=== PATIENT | female | born 1945 | race Caucasian/White ===

== ENCOUNTER 2022-02-11 15:58 | Inpatient (IN) | payer MEDICARE ==
[2022-02-11] MEDS ORDERED: LORazepam 2 MG/ML INJ IV STA (18:30)
[2022-02-11] MEDS ORDERED: SODIUM CHLORIDE 0.9% 1,000 ML IV ONE (18:33)
[2022-02-11] MEDS ORDERED: THIAMINE 100 MG/ML 2 ML VIAL IVP STA (18:33)
[2022-02-11] MEDS ORDERED: FOLIC ACID 1 MG TAB PO STA (18:34)
--- NOTE | 2022-02-11 19:19 | ED ---
Alcohol HPI - General Chief Complaint: Alcohol Stated Complaint: alcohol withdrawl Time Seen by Provider: 02/11/22 18:20 Source: patient, family, RN notes reviewed Mode of arrival: wheelchair Limitations: no limitations - History of Present Illness Initial Comments: Patient is a 76-year-old female sent in by her primary care physician. Patient here with a relative. Apparently the patient drinks alcohol a daily basis. She states 2 drinks a day. However the patient's relative states more. Apparently the patient was sent in for possible thymine deficiency. Patient's primary care physician also wanted a computed tomography scan. Patient has denied any recent falls. She is denying any symptomology herself. However her family member states that she has been having some visual hallucinations and has been acting strange. Patient has no history of pneumonia difficulties. Patient denying any chest pain. No other illicit drug abuse. Last alcohol drink was yesterday. No headache, no fever or chills, no changes in vision or hearing, no sore throat or difficulty with speech, no neck pain, no chest pain or shortness of breath, no abdominal pain, no nausea or vomiting, no changes in urination or bowel movements, no numbness or tingling, no extremity pain, no skin rashes or lesions. Past medical, surgical, social, and family history reviewed. - Related Data Home Medications Medication Instructions Recorded Confirmed Famotidine 40 mg PO DAILY 02/11/22 02/11/22 Loratadine 10 mg PO DAILY 02/11/22 02/11/22 Allergies Allergy/AdvReac Type Severity Reaction Status Date / Time No Known Allergies Allergy Verified 02/11/22 20:49 Review of Systems ROS Statement: Those systems with pertinent positive or pertinent negative responses have been documented in the HPI. ROS Other: All systems not noted in ROS Statement are negative. Past Medical History Past Medical History: Fibromyalgia, Hypertension Additional Past Medical History / Comment(s): alcoholism Additional Past Surgical History / Comment(s): fibroids removed. Past Psychological History: No Psychological Hx Reported Smoking Status: Never smoker Past Alcohol Use History: Abuse, Daily Past Drug Use History: None Reported General Exam - General Exam Comments Initial Comments: Nontoxic appearing female in no acute distress. Patient vital signs are reviewed. Limitations: no limitations General appearance: alert, in no apparent distress Head exam: Present: atraumatic, normocephalic, normal inspection Eye exam: Present: normal appearance, PERRL, EOMI. Absent: scleral icterus, conjunctival injection, periorbital swelling ENT exam: Present: normal exam, mucous membranes moist Neck exam: Present: normal inspection. Absent: tenderness, meningismus, lymphadenopathy Respiratory exam: Present: normal lung sounds bilaterally. Absent: respiratory distress, wheezes, rales, rhonchi, stridor Cardiovascular Exam: Present: regular rate, normal rhythm, normal heart sounds. Absent: systolic murmur, diastolic murmur, rubs, gallop, clicks GI/Abdominal exam: Present: soft, normal bowel sounds. Absent: distended, tend erness, guarding, rebound, rigid Extremities exam: Present: normal inspection, full ROM, normal capillary refill. Absent: tenderness, pedal edema, joint swelling, calf tenderness Back exam: Present: normal inspection Neurological exam: Present: alert, oriented X3, CN II-XII intact Psychiatric exam: Present: normal affect, normal mood Skin exam: Present: warm, dry, intact, normal color. Absent: rash Course Vital Signs 02/11/22 02/11/22 02/11/22 16:09 18:38 19:26 Temperature 97.9 F 98.4 F Pulse Rate 114 H 101 H 99 Pulse Rate [ Pulse Oximetery ] Respiratory 18 16 Rate Blood Pressure 188/119 168/106 175/110 Blood Pressure [Right Arm] O2 Sat by Pulse 99 99 99 Oximetry 02/11/22 02/12/22 02/12/22 20:18 01:01 01:49 Temperature 98.8 F 97.7 F Pulse Rate 84 83 Pulse Rate [ 99 Pulse Oximetery ] Respiratory 16 15 Rate Blood Pressure 149/94 114/78 Blood Pressure 148/88 [Right Arm] O2 Sat by Pulse 96 98 Oximetry - Reevaluation(s) Reevaluation #1: 02/11/22 20:42 Medical record is reviewed Symptoms are unchanged Patient is informed of results and questions answered Patient in no distress Reevaluation #2: 02/11/22 20:55 Medical record is reviewed Patient had a productive cough when I was in the room reevaluating her. Discussed all the findings. We'll add on a chest x-ray and a COVID-19 test. Still awaiting urinalysis. Patient is informed of results and questions answered Patient in no distress Reevaluation #3: 02/11/22 23:10 Chest x-ray shows evidence of pneumonia on lateral view. Likely in the right base. Given the patient's purulent productive cough I'm going to treat for pneumonia with the pneumonia protocol. Rocephin and Zithromax ordered. Will continue Ativan for the patient. Patient's curb 65 score is 2. Given the patient's questionable living situation I'm going to admit the patient. Medical Decision Making - Medical Decision Making Patient presents after being sent in by her regular physician for possible thymine deficiency. Differential diagnosis would be consistent with metabolic encephalopathy, possible early pneumonia, possible thymine deficiency, no evidence of head injury. However we'll obtain a computed tomography scan as the patient drinks on a daily basis and is poor historian. The case was discussed in detail with ED attending physician. Presentation, findings, treatment plan discussed in detail. Technician Automatic Dr. Corley - Lab Data Result diagrams: 02/11/22 18:52 02/11/22 18:52 Lab Results 02/11/22 02/11/22 02/11/22 Range/Units 18:52 18:52 18:52 WBC 5.7 (3.8-10.6) k/uL RBC 4.04 (3.80-5.40) m/uL Hgb 14.2 (11.4-16.0) gm/dL Hct 44.4 (34.0-46.0) % MCV 110.0 H (80.0-100.0) fL MCH 35.1 H (25.0-35.0) pg MCHC 31.9 (31.0-37.0) g/dL RDW 14.4 (11.5-15.5) % Plt Count 191 (150-450) k/uL MPV 8.6 Neutrophils % 64 % Lymphocytes % 28 % Monocytes % 5 % Eosinophils % 2 % Basophils % 1 % Neutrophils # 3.6 (1.3-7.7) k/uL Lymphocytes # 1.6 (1.0-4.8) k/uL Monocytes # 0.3 (0-1.0) k/uL Eosinophils # 0.1 (0-0.7) k/uL Basophils # 0.1 (0-0.2) k/uL Macrocytosis Marked A PT 10.5 (9.0-12.0) sec INR 1.0 (<1.2) Sodium 133 L (137-145) mmol/L Potassium 3.6 (3.5-5.1) mmol/L Chloride 99 (98-107) mmol/L Carbon Dioxide 25 (22-30) mmol/L Anion Gap 9 mmol/L BUN 7 (7-17) mg/dL Creatinine 0.61 (0.52-1.04) mg/dL Est GFR (CKD-EPI)AfAm >90 (>60 ml/min/1.73 sqM) Est GFR (CKD-EPI)NonAf 87 (>60 ml/min/1.73 sqM) Glucose 135 H (74-99) mg/dL Calcium 9.6 (8.4-10.2) mg/dL Phosphorus 3.2 (2.5-4.5) mg/dL Magnesium 1.6 (1.6-2.3) mg/dL Total Bilirubin 1.2 (0.2-1.3) mg/dL AST 54 H (14-36) U/L ALT 27 (4-34) U/L Alkaline Phosphatase 90 (38-126) U/L Ammonia (<30) umol/L Troponin I (0.000-0.034) ng/mL Total Protein 6.7 (6.3-8.2) g/dL Albumin 4.0 (3.5-5.0) g/dL Lipase 52 (23-300) U/L TSH 3.700 (0.465-4.680) mIU/L Serum Alcohol <10 mg/dL Coronavirus (PCR) (Not Detectd) 02/11/22 02/11/22 02/11/22 Range/Units 18:52 18:52 22:05 WBC (3.8-10.6) k/uL RBC (3.80-5.40) m/uL Hgb (11.4-16.0) gm/dL Hct (34.0-46.0) % MCV (80.0-100.0) fL MCH (25.0-35.0) pg MCHC (31.0-37.0) g/dL RDW (11.5-15.5) % Plt Count (150-450) k/uL MPV Neutrophils % % Lymphocytes % % Monocytes % % Eosinophils % % Basophils % % Neutrophils # (1.3-7.7) k/uL Lymphocytes # (1.0-4.8) k/uL Monocytes # (0-1.0) k/uL Eosinophils # (0-0.7) k/uL Basophils # (0-0.2) k/uL Macrocytosis PT (9.0-12.0) sec INR (<1.2) Sodium (137-145) mmol/L Potassium (3.5-5.1) mmol/L Chloride (98-107) mmol/L Carbon Dioxide (22-30) mmol/L Anion Gap mmol/L BUN (7-17) mg/dL Creatinine (0.52-1.04) mg/dL Est GFR (CKD-EPI)AfAm (>60 ml/min/1.73 sqM) Est GFR (CKD-EPI)NonAf (>60 ml/min/1.73 sqM) Glucose (74-99) mg/dL Calcium (8.4-10.2) mg/dL Phosphorus (2.5-4.5) mg/dL Magnesium (1.6-2.3) mg/dL Total Bilirubin (0.2-1.3) mg/dL AST (14-36) U/L ALT (4-34) U/L Alkaline Phosphatase (38-126) U/L Ammonia <9 (<30) umol/L Troponin I <0.012 (0.000-0.034) ng/mL Total Protein (6.3-8.2) g/dL Albumin (3.5-5.0) g/dL Lipase (23-300) U/L TSH (0.465-4.680) mIU/L Serum Alcohol mg/dL Coronavirus (PCR) Not Detected (Not Detectd) - EKG Data EKG Comments: EKG done at 2006 read by the ED attending physician reveals sinus rhythm with rate of 91, normal intervals aside from cure scientologist of 180 ms. Consistent with a right bundle-branch block with RSR pattern in lead V2 and widened QRS. Pulmonary disease pattern. No definitive evidence of acute ST or T-wave changes. There is an inverted T-wave in lead V1. However there is no comparison study., left axis deviation, Disposition Clinical Impression: Community acquired pneumonia, Confusion, Alcohol abuse Disposition: ADMITTED IP TO THIS HOSP Condition: Fair Time of Disposition: 23:12 Decision to Admit Reason: Admit from EC Decision Time: 23:12
[2022-02-11 19:24] LABS: Basophils # (A) 0.1 k/uL (0-0.2); Basophils % (A) 1 %; Eosinophils # (A) 0.1 k/uL (0-0.7); Eosinophils % (A) 2 %; HCT 44.4 % (34.0-46.0); HGB 14.2 gm/dL (11.4-16.0); Lymphocytes # (A) 1.6 k/uL (1.0-4.8); Lymphocytes % (A) 28 %; MCH 35.1 pg (25.0-35.0); MCHC 31.9 g/dL (31.0-37.0); Macrocytosis Marked; Mean Platelet Volume 8.6; Monocytes # (A) 0.3 k/uL (0-1.0); Monocytes % (A) 5 %; Neutrophils # (A) 3.6 k/uL (1.3-7.7); Neutrophils % (A) 64 %; Platelet Count 191 k/uL (150-450); RBC 4.04 m/uL (3.80-5.40); RDW 14.4 % (11.5-15.5); WBC 5.7 k/uL (3.8-10.6)
[2022-02-11 19:34] LABS: Prothrombin Time 10.5 sec (9.0-12.0)
[2022-02-11 19:35] LABS: ALT 27 U/L (4-34); AST 54 U/L (14-36); African American GFR (CKD) >90 (>60 ml/min/1.73 sqM); Alcohol <10 mg/dL; Alkaline Phosphatase 90 U/L (38-126); Anion Gap 9 mmol/L; Blood Urea Nitrogen 7 mg/dL (7-17); Calcium 9.6 mg/dL (8.4-10.2); Carbon Dioxide 25 mmol/L (22-30); Chloride 99 mmol/L (98-107); Glucose 135 mg/dL (74-99); Lipase 52 U/L (23-300); Magnesium 1.6 mg/dL (1.6-2.3); Non-African American GFR(CKD) 87 (>60 ml/min/1.73 sqM); Phosphorus 3.2 mg/dL (2.5-4.5); Potassium 3.6 mmol/L (3.5-5.1); Sodium 133 mmol/L (137-145); Total Bilirubin 1.2 mg/dL (0.2-1.3); Total Protein 6.7 g/dL (6.3-8.2)
--- NOTE | 2022-02-11 20:23 | CT ---
EXAMINATION TYPE: CT brain wo con CT DLP: 1084.4 mGycm, Automated exposure control for dose reduction was used. DATE OF EXAM: 02/11/2022 7:59 PM COMPARISON: None. CLINICAL INDICATION:Female, 76 years old with history of Infusion, confusion/ alcohol withdrawal TECHNIQUE: Brain: Axial CT images of the brain were obtained with coronal and sagittal reformats created and rev iewed. Contrast used: None. Oral contrast used: None. FINDINGS: Brain: Extra-axial spaces: No abnormal extra-axial fluid collections. Ventricular system: Dilatation in proportion to cerebral atrophy. Cerebral parenchyma: Cerebral atrophy. No acute intraparenchymal hemorrhage or mass effect. The schmidt -white junction is well differentiated. Scattered hypoattenuating areas are seen within the white mat ter. Cerebellum: Unremarkable. Mass effect: No evidence of midline shift. Intracranial vasculature: Atherosclerotic calcifications of the intracranial vessels. Soft tissues: Normal. Calvarium/osseous structures: No depressed skull fracture. Paranasal sinuses and mastoid air cells: Mild scattered paranasal sinus disease. Visualized orbits: Orbital contents are intact. IMPRESSION: 1. No acute intracranial process. 2. Nonspecific white matter changes, likely secondary to chronic small vessel ischemic disease.
--- NOTE | 2022-02-11 22:03 | XR ---
EXAMINATION TYPE: XR chest 2V DATE OF EXAM: 02/11/2022 9:52 PM COMPARISON: None TECHNIQUE: XR chest 2V Frontal and lateral views of the chest. CLINICAL INDICATION:Female, 76 years old with history of Cough; FINDINGS: Lungs/Pleura: Opacities seen projecting over the spine on lateral view only There is no evidence of p leural effusion, focal consolidation, or pneumothorax. Pulmonary vascularity: Unremarkable. Heart/mediastinum: Cardiomediastinal silhouette is unremarkable. Musculoskeletal: No acute osseous pathology. IMPRESSION: Opacity within the lower lungs seen on lateral view only, could represent airspace disease.
[2022-02-11] MEDS ORDERED: PNEUMONIA PROTOCOL UTILIZED 1 EACH MISC PO PRN (23:09)
[2022-02-11] MEDS ORDERED: AZITHROMYCIN 500 MG in SODIUM CHLORIDE 0.9% 250 ML IVPB STA (23:09)
[2022-02-11] MEDS ORDERED: LORazepam 2 MG/ML INJ IV PRN ×3 (23:30)
[2022-02-11] MEDS ORDERED: THIAMINE 100 MG/ML 2 ML VIAL IM STA (23:30)
[2022-02-12] MEDS: THIAMINE 100 MG TAB PO SCH ×3 (02:04→16:53)
[2022-02-12 06:46] LABS: Appearance,Urine Cloudy (Clear); Bacteria,Urine Moderate /hpf; Bilirubin,Urine Negative (Negative); Blood,Urine Negative (Negative); Color,Urine Light Yellow; Glucose,Urine (UA) Negative (Negative); Ketones,Urine Trace (Negative); Leukocyte Esterase,Urine Large (Negative); Mucus,Urine Rare /hpf; Nitrite,Urine Negative (Negative); Protein,Urine Negative (Negative); RBC,Urine <1 /hpf (0-5); Renal Epithelial Cells,Urine <1 /hpf (0); Specific Gravity,Urine 1.007 (1.001-1.035); Squamous Epithelial Cell,Urine 16 /hpf (0-4); Transitional Epi Cells,Urine <1 /hpf (0-1); Urobilinogen,Urine <2.0 mg/dL (<2.0); WBC,Urine 51 /hpf (0-5)
--- NOTE | 2022-02-12 07:58 | XR ---
EXAMINATION TYPE: XR chest 2V DATE OF EXAM: 02/12/2022 6:23 AM COMPARISON: Chest radiographs from 02/11/2022. TECHNIQUE: XR chest 2V Frontal and lateral views of the chest. CLINICAL INDICATION:Female, 76 years old with history of pneumonia; FINDINGS: Lungs/Pleura: There is no evidence of pleural effusion or pleural effusion. Improved opacity projecte d over the spine on the lateral view only. Pulmonary vascularity: Unremarkable. Heart/mediastinum: Cardiomediastinal silhouette is unremarkable. Atherosclerotic calcifications are seen in the aorta. Musculoskeletal: No acute osseous pathology. IMPRESSION: Improved opacity projecting over the spine lateral view only. This may represent atelectasis versus i mproving pneumonia.
[2022-02-12] MEDS: HEPARIN SODIUM,PORCINE/PF 5,000 UNIT/0.5 ML SYRINGE SQ SCH ×2 (08:53→19:31)
[2022-02-12 13:50] VITALS: BMI 22.1
[2022-02-12] MEDS: AZITHROMYCIN 500 MG TAB PO SCH (15:01)
[2022-02-12] MEDS ORDERED: VANCOMYCIN IV PER PHARMACY 1 EACH MISC MISCELLANE PRN (17:53)
[2022-02-12] MEDS ORDERED: ACETAMINOPHEN TAB 325 MG TAB PO PRN (17:56)
[2022-02-12] MEDS: PANTOPRAZOLE 40 MG/10 ML VIAL IVP SCH (19:31)
[2022-02-12] MEDS: VANCOMYCIN 1,250 MG in SODIUM CHLORIDE 0.9% 250 ML IVPB SCH ×2 (19:31→20:19)
[2022-02-13 04:07] LABS: African American GFR (CKD) >90 (>60 ml/min/1.73 sqM); Non-African American GFR(CKD) >90 (>60 ml/min/1.73 sqM)
[2022-02-13] MEDS ORDERED: VANCOMYCIN 1,250 MG in SODIUM CHLORIDE 0.9% 250 ML IVPB SCH (08:00)
[2022-02-13] MEDS: THIAMINE 100 MG TAB PO SCH ×2 (08:29→18:43)
[2022-02-13] MEDS: PANTOPRAZOLE 40 MG/10 ML VIAL IVP SCH (08:53)
--- NOTE | 2022-02-13 08:56 | P.HPIM ---
History of Present Illness H&P Date: 02/12/22 Chief Complaint: weakness Alex Butler is a 76 yo F with PMH of fibromyalgia, alcoholism who was brought to the ED by her daughter due to weakness and confusion. She is a daily drinker and had apparently been acting more confused at home so her daughter brought her into her PCP and from there was recommended to go to the ED. She denies chest pain, shortness of breath, fever, nausea or vomiting. On presentation pt hypertensive, WBC 5.7, AST 54, Covid negative, alcohol negative. CT head no acute process. CXR with lower lobe infiltrate. Blood cultures positive x2 for gram positive cocci in clusters. Pt currently reports she is feeling fine. Review of Systems All systems: negative Constitutional: Denies chills, Denies fever Eyes: denies blurred vision, denies pain Ears, nose, mouth and throat: Denies headache, Denies sore throat Cardiovascular: Denies chest pain, Denies shortness of breath Respiratory: Denies cough Gastrointestinal: Denies abdominal pain, Denies diarrhea, Denies nausea, Denies vomiting Genitourinary: Denies dysuria, Denies hematuria Musculoskeletal: Denies myalgias Integumentary: Denies pruritus, Denies rash Neurological: Denies numbness, Denies weakness Psychiatric: Denies anxiety, Denies depression Endocrine: Denies fatigue, Denies weight change Past Medical History Past Medical History: Fibromyalgia, Hypertension Additional Past Medical History / Comment(s): alcoholism History of Any Multi-Drug Resistant Organisms: None Reported Additional Past Surgical History / Comment(s): fibroids removed. Past Anesthesia/Blood Transfusion Reactions: No Reported Reaction Past Psychological History: No Psychological Hx Reported Smoking Status: Never smoker Past Alcohol Use History: Abuse, Daily Past Drug Use History: None Reported Medications and Allergies Home Medications Medication Instructions Recorded Confirmed Type Famotidine 40 mg PO DAILY 02/11/22 02/11/22 History Loratadine 10 mg PO DAILY 02/11/22 02/11/22 History Allergies Allergy/AdvReac Type Severity Reaction Status Date / Time No Known Allergies Allergy Verified 02/11/22 20:49 Physical Exam Vitals: Vital Signs Temp Pulse Resp BP Pulse Ox 02/13/22 00:48 97.5 F L 94 15 118/81 97 02/13/22 00:00 97 02/12/22 19:31 94 15 02/12/22 19:08 98.7 F 100 17 153/93 99 02/12/22 13:50 98.2 F 111 H 18 151/81 99 Intake and Output 02/12/22 02/13/22 02/13/22 22:59 06:59 14:59 Other: Voiding Method Toilet # Voids 4 1 Gen: elderly female in NAD HEENT: NC/AT, mmm Neck: supple, no JVD or thyromegaly CV: RRR, no murmur Lungs: Normal effort, rales at bases Abd: soft, nontender non distended Neuro: alert and oriented x3, no focal deficit Skin: warm and dry Results CBC & Chem 7: 02/11/22 18:52 02/13/22 03:22 Labs: Abnormal Lab Results - Last 24 Hours (Table) 02/13/22 Range/Units 03:22 Creatinine 0.48 L (0.52-1.04) mg/dL Microbiology - Last 24 Hours (Table) 02/12/22 00:20 Blood Culture Gram Stain - Preliminary Blood Blood Culture - Preliminary Staphylococcus epidermidis 02/12/22 00:25 Blood Culture Gram Stain - Preliminary Blood 02/12/22 00:20 Blood Culture - Final Blood 02/12/22 00:25 Blood Culture - Final Blood 02/12/22 06:00 Urine Culture - Preliminary Urine,Voided Thrombosis Risk Factor Assmnt - Choose All That Apply Any of the Below Risk Factors Present?: No Other Risk Factors: Yes Each Risk Factor Represents 3 Points: Age 75 years or older Other congenital or acquired thrombophilia - If yes, enter type in comment: No Thrombosis Risk Factor Assessment Total Risk Factor Score: 3 Thrombosis Risk Factor Assessment Level: Moderate Risk Assessment and Plan Plan: 1. Severe sepsis, admit start IV vancomycin. ID consult. Continue rocephin. Question aspiration. Follow cultures 2. Acute encephalopathy. Secondary to above, no resolved 3. Alcoholism. CIWA protocol
[2022-02-13] MEDS: AZITHROMYCIN 500 MG TAB PO SCH (12:10)
[2022-02-13] MEDS: HEPARIN SODIUM,PORCINE/PF 5,000 UNIT/0.5 ML SYRINGE SQ SCH ×2 (12:10→20:06)
--- NOTE | 2022-02-13 14:06 | P.PN ---
Subjective Progress Note Date: 02/13/22 Alex Butler is a 76 yo F with PMH of fibromyalgia, alcoholism who was brought to the ED by her daughter due to weakness and confusion. She is a daily drinker and had apparently been acting more confused at home so her daughter brought her into her PCP and from there was recommended to go to the ED. She denies chest pain, shortness of breath, fever, nausea or vomiting. On presentation pt hypertensive, WBC 5.7, AST 54, Covid negative, alcohol negative. CT head no acute process. CXR with lower lobe infiltrate. Blood cultures positive x2 for gram positive cocci in clusters. Pt currently reports she is feeling fine. 02/13/2022 maintained on Rocephin, vancomycin, CIWA protocol with significant clinical improvement in sensorium. No DTs. Staff reporting patient drinks 20 ounces of wine daily as per daughter. Daughter Nikkie updated via phone. Blood cultures finalizing.afebrile, normal WBC, negative calcitonin. Sputum culture ordered, patient reports thin mucus unable to bring up, suspect related to alcohol abuse. Blood cultures reporting gram-positive cocci in clusters, suspecting contamination. Maintaining O2 sats in the high 90s on room air, Afebrile. Urine culture in progress. Alert and oriented 3, conversing appropriately. Denies chest pain, palpitations or shortness of breath. Denies lightheadedness, dizziness or focal deficits. Objective - Vital Signs Vital signs: Vital Signs Temp 97.8 F 02/13/22 10:54 Pulse 94 02/13/22 10:54 Resp 22 02/13/22 10:54 BP 143/89 02/13/22 10:54 Pulse Ox 98 02/13/22 10:54 FiO2 Intake & Output 02/12/22 02/13/22 02/13/22 18:59 06:59 18:59 Weight 63.957 kg Other: Voiding Method Toilet Toilet # Voids 4 1 - Exam Gen: elderly female in NAD HEENT: NC/AT, mmm Neck: supple, no JVD CV: RRR, no murmur Lungs: Normal effort, diminished bases Abd: soft, nontender non distended,+BS Neuro: alert and oriented x3, no focal deficit Skin: warm and dry - Labs CBC & Chem 7: 02/11/22 18:52 02/13/22 03:22 Labs: Abnormal Lab Results - Last 24 Hours (Table) 02/13/22 Range/Units 03:22 Creatinine 0.48 L (0.52-1.04) mg/dL Microbiology - Last 24 Hours (Table) 02/12/22 00:25 Blood Culture Gram Stain - Preliminary Blood Blood Culture - Preliminary Coagulase Negative Staph 02/12/22 00:20 Blood Culture Gram Stain - Preliminary Blood Blood Culture - Preliminary Staphylococcus epidermidis 02/12/22 06:00 Urine Culture - Final Urine,Voided 02/12/22 00:20 Blood Culture - Final Blood 02/12/22 00:25 Blood Culture - Final Blood Assessment and Plan Assessment: Possible Acute community-acquired Pneumonia, possibly aspiration secondary to alcoholism, ruling out severe sepsis, final blood cultures pending, suspect contamination Acute encephalopathy secondary to the above, resolved Alcoholism Plan: Continue on current medication regime ,monitoring and symptomatic treatment. Maintain IV antibiotic therapy. Final blood cultures pending. Discharge planning in progress for tomorrow. Daughter updated on discharge plans. The impression and plan of care has been dictated as directed. : I performed a history and examination of this patient, discussed the same with the dictator. I agree with the dictator's note ,documented as a scribe. Any additional findings or plans will be noted.
--- NOTE | 2022-02-13 14:53 | CDI ---
Documentation Clarification Form Date: 02/13/2022 02:38:14 PM From: Luann Hankins RN CCDS Admit Date: 02/11/2022 11:20:00 PM Patient Name: Alex Butler Visit Number: [id number] Discharge Date: ATTENTION: The Clinical Documentation Specialists (CDI) and [facility] Coding Staff appreciate your assistance in clarifying documentation. Please respond to the clarification below the line at the bottom and electronically sign. The CDI & [facility] Coding staff will review the response and follow-up if needed. Please note: Queries are made part of the Legal Health Record. If you have any questions, please contact the author of this message via ITS. Dr. Vignesh Parks Encephalopathy is documented 02/12, H&P. Additional clarification regarding the type of encephalopathy is requested. History/Risk Factors:76 y/o female presents to the ED from PCP office for being more confused at home with weakness. Medical History: Alcoholism; Fibromyalgia and HTN. 02/12, H&P. Clinical Indicators: 02/13, Medicine progress note: Possible Acute community acquired Pneumonia, possibly aspiration secondary to alcoholism. Acute encephalopathy secondary to the above, resolved. CXR, 02/11: Opacity within the lower lungs seen on lateral view only, could represent airspace disease. Labs: MCV 110.0; MCH 35.1; Macrocytosis Marked A; NA 133; AST 54. CT Brain, 02/11: No acute intracranial process. Nonspecific white matter changes, likely secondary to chronic small vessel ischemic disease. Treatment: 02/11 0.9NS 1L bolus; 02/11 Azithromycin 500mg IVPB x 1; 02/11 Ceftriaxone 2gm IVPB x 1; Zithromax 500mg PO Daily x 2 doses; 02/12 Vancomycin 1,250mg IVPB Q12H; 02/13 Ceftriaxone 2gm IVPB Q24H x 4 bags. Please clarify the type of encephalopathy, if known: [ ] Metabolic Encephalopathy [ ] Other, please specify [ ] Unable to determine (Template Last Revised: September 2020) Metabolic Encephalopathy MTDD
[2022-02-14] MEDS ORDERED: VANCOMYCIN TROUGH DUE 1 EACH MISC MISCELLANE ONE (07:00)
[2022-02-14] MEDS ORDERED: PANTOPRAZOLE 40 MG TABLET PO SCH (07:30)
--- NOTE | 2022-02-14 08:07 | P.CONS ---
History of Present Illness - Reason for Consult Consult date: 02/13/22 Bacteremia Requesting physician: Vignesh Parks - Chief Complaint Weakness and confusion x few days - History of Present Illness Patient is a 76-year-old female presenting to the hospital 2 days ago for evaluation of weakness and confusion apparently the patient is a daily drinker of alcohol and the patient acting more confused at home for which the patient was brought into the ER patient on arrival to the ER was afebrile and no fever have been recorded subsequently did have a normal white count kidney function has been normal AST was mildly elevated patient did have a positive UA with large leukocyte Estrace 51 WBC cultures currently pending patient did have a positive blood culture with staph epi patient has been started on vancomycin and Rocephin infectious disease was consulted for further management of antibiotic therapy patient did have a chest x-ray opacity within the lower lungs could represent airspace disease repeat x-ray improved opacity projecting over the spinal lateral view only representing atelectasis versus improving pneumonia. On today's evaluation that is 02/13/2022, the patient denies having any fever or any chills, the patient know that she is in the hospital patient is currently on room air denies any chest pain or shortness of breath did have occasional cough no sputum production denies having any nausea or vomiting no abdominal pain no diarrhea Review of Systems Positive point has been mentioned in the HPI rest of the systems are negative Past Medical History Past Medical History: Fibromyalgia, Hypertension Additional Past Medical History / Comment(s): alcoholism History of Any Multi-Drug Resistant Organisms: None Reported Additional Past Surgical History / Comment(s): fibroids removed. Past Anesthesia/Blood Transfusion Reactions: No Reported Reaction Past Psychological History: No Psychological Hx Reported Smoking Status: Never smoker Past Alcohol Use History: Abuse, Daily Past Drug Use History: None Reported Medications and Allergies Home Medications Medication Instructions Recorded Confirmed Type Famotidine 40 mg PO DAILY 02/11/22 02/11/22 History Loratadine 10 mg PO DAILY 02/11/22 02/11/22 History Allergies Allergy/AdvReac Type Severity Reaction Status Date / Time No Known Allergies Allergy Verified 02/11/22 20:49 Physical Exam Vitals: Vital Signs Temp Pulse Resp BP Pulse Ox 02/13/22 10:54 97.8 F 94 22 143/89 98 02/13/22 00:48 97.5 F L 94 15 118/81 97 02/13/22 00:00 97 02/12/22 19:31 94 15 02/12/22 19:08 98.7 F 100 17 153/93 99 02/12/22 13:50 98.2 F 111 H 18 151/81 99 Intake and Output 02/12/22 02/13/22 02/13/22 22:59 06:59 14:59 Other: Voiding Method Toilet # Voids 4 1 GENERAL DESCRIPTION: Elderly female lying in bed, no distress. No tachypnea or accessory muscle of respiration use. HEENT: Shows Pallor , no scleral icterus. Oral mucous membrane is dry. No pharyngeal erythema or thrush NECK: Trachea central, no thyromegaly. LUNGS: Unlabored breathing. Decreased present at the base. No wheeze or crackle. HEART: S1, S2, regular rate and rhythm. No loud murmur ABDOMEN: Soft, no tenderness , guarding or rigidity, no organomegaly EXTREMITIES: No edema of feet. SKIN: No rash, no masses palpable. NEUROLOGICAL: The patient is awake, alert, oriented x3, mood and affect normal. Results CBC & Chem 7: 02/11/22 18:52 02/13/22 03:22 Labs: Abnormal Lab Results - Last 24 Hours (Table) 02/13/22 Range/Units 03:22 Creatinine 0.48 L (0.52-1.04) mg/dL Microbiology - Last 24 Hours (Table) 02/12/22 00:20 Blood Culture Gram Stain - Preliminary Blood Blood Culture - Preliminary Staphylococcus epidermidis 02/12/22 00:25 Blood Culture Gram Stain - Preliminary Blood 02/12/22 00:20 Blood Culture - Final Blood 02/12/22 00:25 Blood Culture - Final Blood 02/12/22 06:00 Urine Culture - Preliminary Urine,Voided Assessment and Plan (1) UTI (urinary tract infection) Current Visit: Yes Status: Acute Code(s): N39.0 - URINARY TRACT INFECTION, SITE NOT SPECIFIED SNOMED Code(s): 23906155 Plan: 1patient with a positive blood culture finalized with staph epi more likely skin contaminant as the patient has no clinical disease to go along with the blood cultures will be repeated and discontinue vancomycin. 2patient with a confusion mental status changes did have a positive UA possible concern for UTI patient did have a abnormal x-ray could be more likely atelectasis as the patient did not have significant respiratory symptoms and a chest x-ray of improved very quickly within 24-hour. 3discontinue vancomycin and continue with Rocephin while waiting for the culture to finalize. We will follow on clinical condition and cultures to further adjust medication if needed Thank you for this consultation will follow this patient along with you Time with Patient: Greater than 30
[2022-02-14] MEDS: HEPARIN SODIUM,PORCINE/PF 5,000 UNIT/0.5 ML SYRINGE SQ SCH (08:22)
[2022-02-14] MEDS: THIAMINE 100 MG TAB PO SCH (08:22)
[2022-02-14 10:18] LABS: African American GFR (CKD) 107.4 (60.0-200.0); Non-African American GFR(CKD) 92.7 (60.0-200.0)
--- NOTE | 2022-02-14 10:49 | P.DS ---
Providers Date of admission: 02/11/22 23:20 Expected date of discharge: 02/14/22 Attending physician: Vignesh Parks MD Consults: 02/12/22 17:51 Consult Physician Routine Consulting Provider: Beverly Morocho Consult Reason/Comments: positive blood cultures x 2 - gram positive cocci with clusters Do you want consulting provider notified?: Yes Primary care physician: Autumn Post Hospital Course: Final Diagnoses: Acute community-acquired Pneumonia, possibly aspiration secondary to alcoholism, contaminated blood cultures as per ID, sepsis ruled out Acute metabolic encephalopathy secondary to the above, resolved Possible acute UTI .urine culture negative Alcoholism Hospital course:Alex Butler is a 76 yo F with PMH of fibromyalgia, alcoholism who was brought to the ED by her daughter due to weakness and confusion. She is a daily drinker and had apparently been acting more confused at home so her daughter brought her into her PCP and from there was recommended to go to the ED. She denies chest pain, shortness of breath, fever, nausea or vomiting. On presentation pt hypertensive, WBC 5.7, AST 54, Covid negative, alcohol negative. CT head no acute process. CXR with lower lobe infiltrate. Blood cultures positive x2 for gram positive cocci in clusters. Pt currently reports she is feeling fine. 02/13/2022 maintained on Rocephin, vancomycin, CIWA protocol with significant clinical improvement in sensorium. No DTs. Staff reporting patient drinks 20 ounces of wine daily as per daughter. Daughter Nikkie updated via phone. Blood cultures finalizing.afebrile, normal WBC, negative calcitonin. Sputum culture ordered, patient reports thin mucus unable to bring up, suspect related to alcohol abuse. Blood cultures reporting gram-positive cocci in clusters, suspecting contamination. Maintaining O2 sats in the high 90s on room air, Afebrile. Urine culture in progress. Alert and oriented 3, conversing appropriately. Denies chest pain, palpitations or shortness of breath. Denies lightheadedness, dizziness or focal deficits. Alert and oriented 3, negative flip test, denies shortness of breath, chest pain or palpitations. Reports occasional nonproductive cough. Denies shakes sweating or chills. Denies lightheadedness dizziness or focal deficits. Maintained on antibiotics as per infectious disease. Blood culture reported staph epi, probable skin contaminant, vancomycin discontinued. Renal function stable. Significant clinical improvement. Afebrile,VSS. Patient will be discharged home today in a stable condition with guarded prognosis pending final DC recommendations and clearance per infectious disease. Alcohol abstinence reinforced. The impression and plan of care has been dictated as directed. : I performed a history and examination of this patient, discussed the same with the dictator. I agree with the dictator's note ,documented as a scribe. Any additional findings or plans will be noted. Patient Condition at Discharge: Stable Plan - Discharge Summary Discharge Rx Participant: No New Discharge Prescriptions: New Thiamine [Vitamin B-1] 100 mg PO DAILY tab Continue Loratadine 10 mg PO DAILY Famotidine 40 mg PO DAILY Discharge Medication List Famotidine 40 mg PO DAILY 02/11/22 [History] Loratadine 10 mg PO DAILY 02/11/22 [History] Thiamine [Vitamin B-1] 100 mg PO DAILY tab 02/14/22 [Rx] Follow up Appointment(s)/Referral(s): Autumn Post MD [Primary Care Provider] - 3 Days
[2022-02-14 11:32] VITALS: BP 131/81; PULSE 85; RESP 18; TEMP 97.4
== END 2022-02-14 15:07 | disposition home or self-care (01) | DRG 193 ==
LOC: EC 15:58 → 4SSUR 23:20
PROVIDERS: ADMIT Family Medicine; ATTEND Family Medicine
DX: J18.9 Pneumonia, unspecified organism (principal); G93.41 Metabolic encephalopathy; F10.239 Alcohol dependence with withdrawal, unspecified; N39.0 Urinary tract infection, site not specified; J69.0 Pneumonitis due to inhalation of food and vomit; M79.7 Fibromyalgia; I10 Essential (primary) hypertension; Z20.822 Contact with and (suspected) exposure to COVID-19; I45.10 Unspecified right bundle-branch block; Y90.0 Blood alcohol level of less than 20 mg/100 ml; Z98.890 Other specified postprocedural states
CPT/HCPCS: 36415; 70450; 71046; 80053; 80320; 81001; 82140; 82565; 83690; 83735; 84100; 84145; 84443; 84484; 85025; 85610; 86140; 87040; 87086; 87635; 93005; 96365; 96368; 96375; 99285

== ENCOUNTER 2022-03-24 19:13 | Emergency (ER) | payer MEDICARE ==
[2022-03-24 19:28] VITALS: RESP 20; TEMP 98.5
[2022-03-24] MEDS ORDERED: SODIUM CHLORIDE 0.9% 1,000 ML IV STA (20:00)
[2022-03-24 20:31] LABS: Basophils # (A) 0.1 k/uL (0-0.2); Basophils % (A) 1 %; Eosinophils # (A) 0.2 k/uL (0-0.7); Eosinophils % (A) 4 %; HCT 37.7 % (34.0-46.0); HGB 12.1 gm/dL (11.4-16.0); Lymphocytes # (A) 1.8 k/uL (1.0-4.8); Lymphocytes % (A) 33 %; MCH 33.7 pg (25.0-35.0); MCHC 32.1 g/dL (31.0-37.0); MCV 104.9 fL (80.0-100.0); Macrocytosis Slight; Mean Platelet Volume 7.7; Monocytes # (A) 0.3 k/uL (0-1.0); Monocytes % (A) 5 %; Neutrophils # (A) 2.9 k/uL (1.3-7.7); Neutrophils % (A) 54 %; Platelet Count 239 k/uL (150-450); RDW 13.5 % (11.5-15.5); WBC 5.3 k/uL (3.8-10.6)
[2022-03-24 20:44] LABS: ALT 21 U/L (4-34); AST 53 U/L (14-36); African American GFR (CKD) >90 (>60 ml/min/1.73 sqM); Albumin 3.6 g/dL (3.5-5.0); Alkaline Phosphatase 49 U/L (38-126); Anion Gap 6 mmol/L; Blood Urea Nitrogen 8 mg/dL (7-17); Carbon Dioxide 25 mmol/L (22-30); Chloride 102 mmol/L (98-107); Glucose 106 mg/dL (74-99); Magnesium 1.5 mg/dL (1.6-2.3); Non-African American GFR(CKD) 86 (>60 ml/min/1.73 sqM); Potassium 3.9 mmol/L (3.5-5.1); Sodium 133 mmol/L (137-145); Total Bilirubin 0.9 mg/dL (0.2-1.3); Total Protein 6.2 g/dL (6.3-8.2)
--- NOTE | 2022-03-24 20:53 | XR ---
EXAMINATION TYPE: XR chest 2V DATE OF EXAM: 03/24/2022 COMPARISON: 03/05/2022 HISTORY: Syncope TECHNIQUE: FINDINGS: Heart is normal. Lungs are clear of consolidation. No heart failure. Thoracic aorta is athe romatous. There are chest leads. Costophrenic angles are clear. Bony thorax is intact IMPRESSION: No active cardiopulmonary disease. No change.
[2022-03-24 21:14] LABS: Glucose,Whole Blood 103 mg/dL (70-110)
[2022-03-24 21:24] LABS: INR 0.9 (<1.2); Prothrombin Time 9.8 sec (9.0-12.0)
--- NOTE | 2022-03-24 21:30 | CT ---
EXAMINATION TYPE: CT brain cspine wo con DATE OF EXAM: 03/24/2022 COMPARISON: CT brain 02/11/2022 HISTORY: syncope Pain CT DLP: 1211.5 mGycm Automated exposure control for dose reduction was used. Images obtained of the brain and cervical spine without contrast. There is cerebral cortical atrophy. There is no mass effect or midline shift. No sign of intracranial hemorrhage. Calvarium is intact. There is normal aeration of the mastoid sinuses. No evidence of cer ebral edema. The cervical vertebra have normal alignment. There is mild cervical disc space narrowing. No compress ion fracture. There is multilevel mild cervical facet arthropathy. Prevertebral soft tissues are inta ct. Skull base is intact. IMPRESSION: Cerebral atrophy. No acute intracranial abnormality. No change. Minor degenerative disc changes in the cervical spine. No fracture.
[2022-03-24 21:31] LABS: Partial Thromboplastin Time 21.7 sec (22.0-30.0)
[2022-03-24 21:55] LABS: Appearance,Urine Clear (Clear); Bilirubin,Urine Negative (Negative); Blood,Urine Negative (Negative); Color,Urine Yellow; Glucose,Urine (UA) Negative (Negative); Hyaline Casts,Urine 11 /lpf (0-2); Ketones,Urine Trace (Negative); Leukocyte Esterase,Urine Trace (Negative); Mucus,Urine Rare /hpf; Nitrite,Urine Negative (Negative); PH, Urine 5.5 (5.0-8.0); Protein,Urine Negative (Negative); RBC,Urine 1 /hpf (0-5); Specific Gravity,Urine 1.008 (1.001-1.035); Squamous Epithelial Cell,Urine 1 /hpf (0-4); Urobilinogen,Urine <2.0 mg/dL (<2.0); WBC,Urine 1 /hpf (0-5)
--- NOTE | 2022-03-24 23:04 | ED ---
Dizziness HPI - General Chief Complaint: Syncope Stated Complaint: syncope Time Seen by Provider: 03/24/22 19:30 Source: patient, EMS Mode of arrival: EMS - History of Present Illness Initial Comments: Patient is a 76-year-old female presenting with chief complaint of syncope. Andrea deisi has history of alcohol abuse. Patient was at the store with her daughter today, as she was walking around the store she began to feel tired, her daughter told her to go to the car and she would be right there, daughter came back to the car patient was found sitting on the ground, bystanders said that she had a brief episode of loss of consciousness. Patient is confused and cannot remember the details of the story, daughter states that she has been having some visual hallucinations at home. Patient has a history of these hallucinations in the past. At this time patient denies any chest pain, shortness of breath, nausea, vomiting, abdominal pain, numbness, tingling, weakness, headache, vision or hearing changes, neck pain, dysuria, hematuria, urgency, frequency, flank pain. - Related Data Home Medications Medication Instructions Recorded Confirmed Famotidine 40 mg PO DAILY 02/11/22 03/05/22 Loratadine 10 mg PO DAILY 02/11/22 03/05/22 Previous Rx's Medication Instructions Recorded Thiamine [Vitamin B-1] 100 mg PO DAILY tab 02/14/22 busPIRone HCl [Buspar] 10 mg PO TID PRN #30 tab 03/07/22 hydroCHLOROthiazide 25 mg PO DAILY #30 tablet 03/07/22 Allergies Allergy/AdvReac Type Severity Reaction Status Date / Time No Known Allergies Allergy Verified 03/24/22 19:19 Review of Systems ROS Statement: Those systems with pertinent positive or pertinent negative responses have been documented in the HPI. ROS Other: All systems not noted in ROS Statement are negative. Past Medical History Past Medical History: Fibromyalgia, Hypertension Additional Past Medical History / Comment(s): alcoholism History of Any Multi-Drug Resistant Organisms: None Reported Additional Past Surgical History / Comment(s): fibroids removed. Past Anesthesia/Blood Transfusion Reactions: No Reported Reaction Past Psychological History: No Psychological Hx Reported Smoking Status: Never smoker Past Alcohol Use History: Abuse, Daily Past Drug Use History: None Reported General Exam Limitations: altered mental status General appearance: alert, in no apparent distress Head exam: Present: atraumatic, normocephalic, normal inspection Eye exam: Present: normal appearance, PERRL, EOMI. Absent: scleral icterus, periorbital swelling, periorbital tenderness Pupils: Present: normal accommodation Neck exam: Present: normal inspection, full ROM. Absent: tenderness Respiratory exam: Present: normal lung sounds bilaterally. Absent: respiratory distress, wheezes, rales, rhonchi, stridor Cardiovascular Exam: Present: regular rate, normal rhythm, normal heart sounds. Absent: systolic murmur, diastolic murmur, rubs, gallop, clicks Neurological exam: Present: alert, altered, CN II-XII intact Expanded Speech: Present: fluid speech Cranial nerves: EOM's Intact: Normal, Facial Sensation: Normal Cerebellar function: Finger to Nose: Normal Sensory exam: Upper Extremity Light Touch: Normal, Lower Extremity Light Touch: Normal Motor strength exam: RUE: 5, LUE: 5, RLE: 5, LLE: 5 Eye Response: (4) open spontaneously Motor Response: (6) obeys commands Verbal Response: (5) oriented Panacea Total: 15 Psychiatric exam: Present: normal affect, normal mood Skin exam: Present: warm, dry, intact, normal color. Absent: rash Course Vital Signs 03/24/22 03/24/22 03/24/22 19:19 19:28 21:03 Temperature 98.5 F Pulse Rate 86 96 Pulse Rate [ 92 Left Supine] Respiratory 20 20 Rate Blood Pressure 176/109 161/93 O2 Sat by Pulse 99 99 Oximetry 03/24/22 21:19 Temperature Pulse Rate 103 H Pulse Rate [ Left Supine] Respiratory 20 Rate Blood Pressure 161/93 O2 Sat by Pulse 98 Oximetry EKG Findings - EKG Comments: EKG Findings:: Sinus rhythm rate of 86. OH interval 151. QRS duration 120. QT/QTC 396/439. Right bundle branch block. No changes when compared to previous EKG. Medical Decision Making - Medical Decision Making Patient is a 76-year-old female presenting with chief complaint of syncope. Patient had episode of syncope while waiting outside of her car prior to arrival. Patient states she could feel herself getting tired so sat down on the ground, bystanders state that at that time she had a brief episode of loss of c onsciousness. Her daughter is at bedside supplementing history as patient is poor historian. Patient has been experiencing visual hallucinations, she has a history of this. On examination heart and lungs are clear to auscultation, neuro exam shows no focal deficits. Patient is somewhat confused, A&O x 2-3. Lab work shows no leukocytosis, hemoglobin is 12.1. PT/INR WNL. Sodium 133. Glucose 106. Magnesium 1.5. AST 53. Urine shows no sign of infectious process, urine sent for culture. CT of the brain and cervical spine shows no acute intracranial process or fracture of the cervical spine. Chest x-ray shows no active cardiopulmonary disease. Thiamine level was sent out. Patient ap pears stable for discharge with outpatient follow-up at this time. Follow-up with PCP in one to 2 days. Report back to ER with any new or worsening symptoms. Discussed return parameters answered all questions. Patient and daughter conveyed verbal understanding and agreed to the plan. I discussed this case with my attending Dr. King. - Lab Data Result diagrams: 03/24/22 20:07 03/24/22 20:07 Lab Results 03/24/22 03/24/22 03/24/22 Range/Units 20:07 20:07 20:07 WBC 5.3 (3.8-10.6) k/uL RBC 3.60 L (3.80-5.40) m/uL Hgb 12.1 (11.4-16.0) gm/dL Hct 37.7 (34.0-46.0) % MCV 104.9 H (80.0-100.0) fL MCH 33.7 (25.0-35.0) pg MCHC 32.1 (31.0-37.0) g/dL RDW 13.5 (11.5-15.5) % Plt Count 239 (150-450) k/uL MPV 7.7 Neutrophils % 54 % Lymphocytes % 33 % Monocytes % 5 % Eosinophils % 4 % Basophils % 1 % Neutrophils # 2.9 (1.3-7.7) k/uL Lymphocytes # 1.8 (1.0-4.8) k/uL Monocytes # 0.3 (0-1.0) k/uL Eosinophils # 0.2 (0-0.7) k/uL Basophils # 0.1 (0-0.2) k/uL Macrocytosis Slight PT 9.8 (9.0-12.0) sec INR 0.9 (<1.2) APTT 21.7 L (22.0-30.0) sec Sodium 133 L (137-145) mmol/L Potassium 3.9 (3.5-5.1) mmol/L Chloride 102 (98-107) mmol/L Carbon Dioxide 25 (22-30) mmol/L Anion Gap 6 mmol/L BUN 8 (7-17) mg/dL Creatinine 0.65 (0.52-1.04) mg/dL Est GFR (CKD-EPI)AfAm >90 (>60 ml/min/1.73 sqM) Est GFR (CKD-EPI)NonAf 86 (>60 ml/min/1.73 sqM) Glucose 106 H (74-99) mg/dL POC Glucose (mg/dL) (70-110) mg/dL POC Glu Pharmacy Order Entry Technician ID Calcium 9.0 (8.4-10.2) mg/dL Magnesium 1.5 L (1.6-2.3) mg/dL Total Bilirubin 0.9 (0.2-1.3) mg/dL AST 53 H (14-36) U/L ALT 21 (4-34) U/L Alkaline Phosphatase 49 (38-126) U/L Troponin I (0.000-0.034) ng/mL Total Protein 6.2 L (6.3-8.2) g/dL Albumin 3.6 (3.5-5.0) g/dL Urine Color Urine Appearance (Clear) Urine pH (5.0-8.0) Ur Specific [place] (1.001-1.035) Urine Protein (Negative) Urine Glucose (UA) (Negative) Urine Ketones (Negative) Urine Blood (Negative) Urine Nitrite (Negative) Urine Bilirubin (Negative) Urine Urobilinogen (<2.0) mg/dL Ur Leukocyte Esterase (Negative) Urine RBC (0-5) /hpf Urine WBC (0-5) /hpf Ur Squamous Epith Cells (0-4) /hpf Hyaline Casts (0-2) /lpf Urine Mucus (None) /hpf 03/24/22 03/24/22 03/24/22 Range/Units 20:07 21:03 21:19 WBC (3.8-10.6) k/uL RBC (3.80-5.40) m/uL Hgb (11.4-16.0) gm/dL Hct (34.0-46.0) % MCV (80.0-100.0) fL MCH (25.0-35.0) pg MCHC (31.0-37.0) g/dL RDW (11.5-15.5) % Plt Count (150-450) k/uL MPV Neutrophils % % Lymphocytes % % Monocytes % % Eosinophils % % Basophils % % Neutrophils # (1.3-7.7) k/uL Lymphocytes # (1.0-4.8) k/uL Monocytes # (0-1.0) k/uL Eosinophils # (0-0.7) k/uL Basophils # (0-0.2) k/uL Macrocytosis PT (9.0-12.0) sec INR (<1.2) APTT (22.0-30.0) sec Sodium (137-145) mmol/L Potassium (3.5-5.1) mmol/L Chloride (98-107) mmol/L Carbon Dioxide (22-30) mmol/L Anion Gap mmol/L BUN (7-17) mg/dL Creatinine (0.52-1.04) mg/dL Est GFR (CKD-EPI)AfAm (>60 ml/min/1.73 sqM) Est GFR (CKD-EPI)NonAf (>60 ml/min/1.73 sqM) Glucose (74-99) mg/dL POC Glucose (mg/dL) 103 (70-110) mg/dL POC Glu Pharmacy Order Entry Technician ID Lonny Coates Calcium (8.4-10.2) mg/dL Magnesium (1.6-2.3) mg/dL Total Bilirubin (0.2-1.3) mg/dL AST (14-36) U/L ALT (4-34) U/L Alkaline Phosphatase (38-126) U/L Troponin I 0.019 (0.000-0.034) ng/mL Total Protein (6.3-8.2) g/dL Albumin (3.5-5.0) g/dL Urine Color Yellow Urine Appearance Clear (Clear) Urine pH 5.5 (5.0-8.0) Ur Specific [place] 1.008 (1.001-1.035) Urine Protein Negative (Negative) Urine Glucose (UA) Negative (Negative) Urine Ketones Trace H (Negative) Urine Blood Negative (Negative) Urine Nitrite Negative (Negative) Urine Bilirubin Negative (Negative) Urine Urobilinogen <2.0 (<2.0) mg/dL Ur Leukocyte Esterase Trace H (Negative) Urine RBC 1 (0-5) /hpf Urine WBC 1 (0-5) /hpf Ur Squamous Epith Cells 1 (0-4) /hpf Hyaline Casts 11 H (0-2) /lpf Urine Mucus Rare H (None) /hpf Disposition Clinical Impression: Syncope Disposition: HOME SELF-CARE Condition: Fair Instructions (If sedation given, give patient instructions): Syncope (ED) Additional Instructions: Follow-up with PCP in 1-2 days. Report back to ER with any new or worsening symptoms. Is patient prescribed a controlled substance at d/c from ED?: No Referrals: Autumn Post MD [Primary Care Provider] - 1-2 days Time of Disposition: 23:04
[2022-03-25 00:19] VITALS: BP 149/84; PULSE 100
== END 2022-03-25 00:38 | disposition home or self-care (01) ==
LOC: EC 19:13
DX: R55 Syncope and collapse (principal); I10 Essential (primary) hypertension
CPT/HCPCS: 36415; 70450; 71046; 72125; 80053; 81001; 83735; 84425; 84484; 85025; 85610; 85730; 96360; 96361; 99285

== ENCOUNTER → 2023-01-09 | Outpatient (CLI) | payer MEDICARE | END | disposition home or self-care (01) | LOC: LABWHC1 16:25 | PROVIDERS: ATTEND Family Medicine | DX: R53.1 Weakness (principal) | CPT/HCPCS: 36415; 82175; 82570; 83655; 83825; 85652; 86140 ==

== ENCOUNTER → 2024-12-01 | Outpatient (CLI) | payer MEDICARE ==
[2024-12-02 02:54] LABS: C Reactive Protein <0.30 mg/dL (0.00-0.80); LDH 197 U/L (120-246)
== END | disposition home or self-care (01) ==
LOC: LABWHC1 15:04
PROVIDERS: ATTEND Family Medicine
DX: R63.4 Abnormal weight loss (principal)
CPT/HCPCS: 36415; 83615; 85652; 86140